=== PATIENT | female | born 1985 | race Two or more races ===

== ENCOUNTER 2022-03-08 23:04 | Emergency (ER) | payer MEDICAID ==
[~2022-03-08] VITALS: Ht 167.6 cm; Wt 81.6 kg
[~2022-03-08 23:04] MED LIST: ALPR0.5T; CITA20TA9; DICY20TA38 PO; OME20GT
[2022-03-08 23:30] VITALS: BP 138/86
[2022-03-09] MEDS ORDERED: MECL25CH38 PO (16:02)
== END 2022-03-09 02:07 | disposition left against medical advice (07) ==
LOC: EDBD 23:04 → EDUNIT# 23:04 → ER 23:09
DX: R51.9 Headache, unspecified (principal); M54.2 Cervicalgia; Z53.21 Procedure and treatment not carried out due to patient leaving prior to being seen by health care provider

== ENCOUNTER 2022-03-09 12:10 | Emergency (ER) | payer MEDICAID ==
[2022-03-09 13:23] LABS: Basophils # (auto) 0.1 10 ^3/uL (0-0.2); Basophils % (auto) 1.2 % (0.0-2.0); Eosinophils # (auto) 0.2 10 ^3/uL (0-0.8); Eosinophils % (auto) 2.4 % (0.0-7.0); Hematocrit 37.7 % (36.0-46.0); Hemoglobin 12.8 g/dL (12.2-16.2); Lymphocytes % (auto) 24.9 % (10.0-50.0); Mean Corpuscular Hemoglobin 28.9 pg (28.0-32.0); Mean Corpuscular Hgb Conc. 33.9 g/dL (32.0-36.0); Mean Corpuscular Volume 85.4 fL (80.0-100.0); Monocytes # (auto) 0.6 10 ^3/uL (0-1.3); Monocytes % (auto) 7.4 % (0.0-12.0); Neutrophils # (auto) 5.2 10 ^3/uL (1.6-8.6); Neutrophils % (auto) 64.1 % (37.0-80.0); Nucleated Red Blood Cells % 0.1 %; Red Blood Cells 4.41 10^6/uL (4.0-5.20); Red Cell Distribution Width 13.7 % (11.8-14.3); White Blood Cell 8.1 10^3/uL (4.4-10.8)
[2022-03-09 13:36] LABS: Calcium 8.9 mg/dL (8.5-10.1); Potassium 4.1 mmol/L (3.5-5.1)
[2022-03-09 13:42] LABS: Albumin 3.4 g/dL (3.4-5.0); BUN/Creatinine Ratio 13.6; Bilirubin, Total 0.4 mg/dL (0.2-1.0); Total Protein 7.6 g/dL (6.4-8.2)
[2022-03-09] MEDS ORDERED: MECL25CH38 PO (16:02)
[2022-03-09 16:20] VITALS: BP 99/67
== END 2022-03-09 16:23 | disposition home or self-care (01) ==
LOC: ER 12:10
DX: S09.90XA Unspecified injury of head, initial encounter (principal); R42 Dizziness and giddiness; K21.9 Gastro-esophageal reflux disease without esophagitis; Z90.49 Acquired absence of other specified parts of digestive tract; X58.XXXA Exposure to other specified factors, initial encounter; Y93.89 Activity, other specified; Y92.89 Other specified places as the place of occurrence of the external cause; Y99.8 Other external cause status
CPT/HCPCS: 36415; 70450; 74176; 80053; 83690; 85025; 93005